=== PATIENT | female | born 1930 | race Caucasian/White ===

== ENCOUNTER → 2020-01-26 | Outpatient (REF) | payer MEDICARE | LOC: M LAB REF 12:21 | PROVIDERS: ATTEND Physician Assistant | DX: N39.0 Urinary tract infection, site not specified (principal) ==

== ENCOUNTER → 2022-03-22 | Outpatient (REF) | payer MEDICARE | LOC: M LAB REF 12:43 | PROVIDERS: ATTEND Internal Medicine | DX: N39.0 Urinary tract infection, site not specified (principal) ==

== ENCOUNTER → 2022-04-04 | Outpatient (REF) | payer MEDICARE ==
[2022-04-04 13:02] LABS: AMORPHOUS SEDIMENT SMALL (NEGATIVE); BACTERIA, URINE AUTO 1+ (NEGATIVE); MUCUS, URINE SMALL (NEGATIVE); RBC, URINE AUTO 65 /HPF (0-3); SQUAMOUS EPITHELIAL CELL UR AU 2 /HPF (0-6); TRANSITIONAL EPITHELIAL AUTO 2 /HPF; WBC, URINE AUTO TNTC /HPF (0-3)
== END ==
LOC: M LAB REF 12:10
PROVIDERS: ATTEND Internal Medicine
DX: N39.0 Urinary tract infection, site not specified (principal); R31.9 Hematuria, unspecified

== ENCOUNTER → 2022-04-05 | Outpatient (CLI) | payer MEDICARE, BC | LOC: M PLAIMG 10:04 | PROVIDERS: ATTEND Internal Medicine | DX: N13.1 Hydronephrosis with ureteral stricture, not elsewhere classified (principal) ==

== ENCOUNTER → 2022-04-10 | Outpatient (CLI) | payer MEDICARE, BC ==
[2022-04-10 15:51] LABS: CALCIUM LEVEL 8.7 MG/DL (8.8-10.2); CREATININE FOR GFR 1.08 MG/DL (0.55-1.30); GLOMERULAR FILTRATION RATE 50.9 (>32); POTASSIUM SERUM 4.7 MEQ/L (3.5-5.1)
== END ==
LOC: M PLALAB 10:18
PROVIDERS: ATTEND Physician Assistant
DX: N20.1 Calculus of ureter (principal); Z90.5 Acquired absence of kidney

== ENCOUNTER → 2022-05-02 | Outpatient (REF) | payer MEDICARE, BC ==
[~2022-05-02] MED LIST: APPLE CIDER VINEGAR PA; ATOR40TA75 PO; DILT180C28 PO; ELIQ5TAB PO; LEVO75TA4 PO; RAMI1CAP26 PO; SEMA1PEN2 SC; TAMS1CAP17 PO; TOUJ1.2I SQ; VITA1TAB61 PO; VITMTA PO
[2022-05-02 14:06] LABS: APPEARANCE, URINE HAZY (CLEAR); BACTERIA, URINE AUTO 1+ (NEGATIVE); BILIRUBIN, URINE AUTO NEGATIVE (NEGATIVE); BLOOD, URINE BLOOD 3+ (NEGATIVE); COLOR, URINE YELLOW (YELLOW); GLUCOSE, URINE (UA) AUTO NEGATIVE (NEGATIVE); KETONE, URINE AUTO NEGATIVE (NEGATIVE); LEUKOCYTE ESTERASE, URINE AUTO 3+ (NEGATIVE); NITRITE, URINE AUTO NEGATIVE (NEGATIVE); PROTEIN, URINE AUTO NEGATIVE (NEGATIVE); RBC, URINE AUTO 20 /HPF (0-3); SPECIFIC GRAVITY URINE AUTO 1.008 (1.002-1.035); SQUAMOUS EPITHELIAL CELL UR AU 2 /HPF (0-6); UROBILINOGEN, URINE AUTO 0.2 mg/dL (0.0-2.0); WBC, URINE AUTO 48 /HPF (0-3)
== END ==
LOC: M LAB REF 12:15
PROVIDERS: ATTEND Internal Medicine
DX: Z01.810 Encounter for preprocedural cardiovascular examination (principal); Z79.899 Other long term (current) drug therapy

== ENCOUNTER → 2022-05-05 | Outpatient (CLI) | payer MEDICARE, BC ==
[2022-05-05 18:37] LABS: APPEARANCE, URINE CLEAR (CLEAR); BACTERIA, URINE AUTO NEGATIVE (NEGATIVE); BILIRUBIN, URINE AUTO NEGATIVE (NEGATIVE); BLOOD, URINE BLOOD NEGATIVE (NEGATIVE); COLOR, URINE STRAW (YELLOW); GLUCOSE, URINE (UA) AUTO NEGATIVE (NEGATIVE); KETONE, URINE AUTO NEGATIVE (NEGATIVE); LEUKOCYTE ESTERASE, URINE AUTO NEGATIVE (NEGATIVE); MUCUS, URINE SMALL (NEGATIVE); NITRITE, URINE AUTO NEGATIVE (NEGATIVE); PROTEIN, URINE AUTO NEGATIVE (NEGATIVE); RBC, URINE AUTO 0 /HPF (0-3); SPECIFIC GRAVITY URINE AUTO 1.006 (1.002-1.035); SQUAMOUS EPITHELIAL CELL UR AU 0 /HPF (0-6); UROBILINOGEN, URINE AUTO 0.2 mg/dL (0.0-2.0); WBC, URINE AUTO 6 /HPF (0-3)
== END ==
LOC: M PLALAB 15:41
PROVIDERS: ATTEND Physician Assistant
DX: N39.0 Urinary tract infection, site not specified (principal); N20.1 Calculus of ureter; J94.8 Other specified pleural conditions

== ENCOUNTER → 2022-05-07 | Outpatient (CLI) | payer MEDICARE, BC | LOC: M LABSMTC 09:21 | PROVIDERS: ATTEND Anesthesiology | DX: Z11.52 Encounter for screening for COVID-19 (principal); Z20.822 Contact with and (suspected) exposure to COVID-19 ==

== ENCOUNTER 2022-05-10 09:05 | Day surgery (SDC) | payer MEDICARE, BC ==
[~2022-05-10] VITALS: Ht 162.6 cm; Wt 83.0 kg
[~2022-05-10 09:05] MED LIST changes: +ceFAZolin SOD 2 GM in IV 1 EA IV ONE
[2022-05-10] MEDS ORDERED: fentaNYL 100 MCG/2 ML INJECTION As Ordered ONE (09:53)
[2022-05-10] MEDS ORDERED: MIDAZOLAM INJ 2MG/2ML VIAL (J2250 PER 1MG) As Ordered ONE (09:53)
[2022-05-10] MEDS ORDERED: propofoL 200 MG/20 ML VIAL As Ordered ONE (09:53)
[2022-05-10] MEDS ORDERED: LIDOCAINE 2% 100MG/5ML SDV (FOR ANES.) As Ordered ONE (09:53)
[2022-05-10] MEDS ORDERED: LR 1,000 ML IV SCH ×2 (10:00→12:40)
[2022-05-10] MEDS ORDERED: ISOVUE-300 61% 50ML VIAL As Ordered ONE (10:57)
[2022-05-10] MEDS ORDERED: ONDANSETRON 4MG 2ML VIAL As Ordered ONE (11:24)
[2022-05-10] MEDS ORDERED: ACETAMINOPHEN 1000MG 100ML IV BTL (OFIRMEV) (J0131 PER 10MG) As Ordered ONE (11:26)
[2022-05-10] MEDS ORDERED: ePHEDrine SULFATE 25 MG/5 ML(5MG/ML) SYRINGE As Ordered ONE (11:49)
[2022-05-10] MEDS ORDERED: PHENYLephrine 500MCG 5ML (100MCG/ML) SYRINGE As Ordered ONE (11:49)
[2022-05-10] MEDS ORDERED: METOCLOPRAMIDE INJ 10MG/2ML VIAL (J2765 PER 1) IV PRN (12:40)
[2022-05-10] MEDS ORDERED: fentaNYL 100 MCG/2 ML INJECTION IV PRN (12:40)
[2022-05-10] MEDS ORDERED: ONDANSETRON 4MG 2ML VIAL IV PRN (12:40)
[2022-05-10] MEDS ORDERED: oxyCODONE 5MG TAB PO PRN (12:40)
[2022-05-10 13:44] VITALS: BP 150/63
[2022-05-10] MEDS ORDERED: PERCOCET 5MG/325MG TAB PO PRN (13:55)
[2022-05-16 23:07] LABS: CA Oxalate Dihy 20 % (.); Ca Ox Monohydrate 80 % (.); Size 7x5 mm (.)
== END 2022-05-10 13:46 | disposition home or self-care (01) ==
LOC: M SDC 09:05
PROVIDERS: ATTEND Urology
DX: N20.2 Calculus of kidney with calculus of ureter (principal); I48.91 Unspecified atrial fibrillation; I25.2 Old myocardial infarction; E11.9 Type 2 diabetes mellitus without complications; E03.9 Hypothyroidism, unspecified; Z86.73 Personal history of transient ischemic attack (TIA), and cerebral infarction without residual deficits; Z79.01 Long term (current) use of anticoagulants; Z79.4 Long term (current) use of insulin; Z79.899 Other long term (current) drug therapy; Z91.041 Radiographic dye allergy status
CPT/HCPCS: 52356; 74420; 82365; C1769; C1894; C2617; J0131; J0690; J2370; J2405; J3010; Q9967

== ENCOUNTER → 2022-07-25 | Outpatient (REF) | payer MEDICARE, BC ==
[~2022-07-25] MED LIST changes: +CEPH500C PO; -ceFAZolin SOD 2 GM in IV 1 EA IV ONE
== END ==
LOC: M LAB REF 16:09
PROVIDERS: ATTEND Physician Assistant Medical
DX: R10.9 Unspecified abdominal pain (principal)